=== PATIENT | female | born 1990 | race Hispanic/Latino ===

== ENCOUNTER 2019-03-10 21:20 | Emergency (ER) | payer OTHER ==
[2019-03-10] MEDS ORDERED: Acetaminophen 500 MG TAB ONE (21:31)
--- NOTE | 2019-03-10 22:11 | CT ---
CT brain noncontrast: HISTORY: 28-year-old female status post acute head trauma from fall FINDINGS: There is no evidence of acute intra-axial or extra-axial hemorrhage. There is no midline shift or any other mass effect. There is no extra-axial fluid collection. The ventricles are normal in size and configuration. The tympanomastoid cavities, and the upper portions of the paranasal sinuses included in these images, are grossly clear. Calvarium is intact. IMPRESSION: Normal.
== END 2019-03-10 22:18 | disposition home or self-care (01) ==
LOC: NAV ERS 21:20
DX: O9A.212 Injury, poisoning and certain other consequences of external causes complicating pregnancy, second trimester (principal); S06.0X0A Concussion without loss of consciousness, initial encounter; S00.01XA Abrasion of scalp, initial encounter; W01.0XXA Fall on same level from slipping, tripping and stumbling without subsequent striking against object, initial encounter; Z3A.17 17 weeks gestation of pregnancy
CPT/HCPCS: 70450